=== PATIENT | male | born 1945 | race Caucasian/White ===

== ENCOUNTER 2017-01-19 15:36 | Inpatient (IN) | payer OTHER ==
[~2017-01-19] VITALS: Ht 185.4 cm; Wt 112.7 kg
[2017-01-19 16:06] VITALS: BP 160/65; PULSE 69; TEMP 98.1
[2017-01-19 19:30] VITALS: BP 171/66; PULSE 80; TEMP 97.8
[2017-01-19] MEDS ORDERED: NORVASC 10MG10 MG PO (19:34)
[2017-01-19] MEDS ORDERED: MOBIC 7.5MG7.5 MG PO (19:34)
[2017-01-19] MEDS ORDERED: VITAMIN D 1001000 IU ×2 (19:35→19:37)
[2017-01-19] MEDS ORDERED: ZANTAC 300300 MG PO (19:35)
[2017-01-19] MEDS ORDERED: NEURONTIN400 MG/CAP PO (19:35)
[2017-01-19] MEDS ORDERED: ZESTRIL 20MG TA20 MG PO (19:36)
[2017-01-19] MEDS ORDERED: ZOCOR 20MG20 MG PO (19:36)
[2017-01-19] MEDS ORDERED: ZOLOFT 100MG100 MG PO (19:36)
[2017-01-19] MEDS ORDERED: ASPIRIN 32325 MG/TAB PO (19:37)
[2017-01-19] MEDS ORDERED: K-DUR20 MEQ PO (19:37)
[2017-01-19] MEDS ORDERED: LANTUS100 U/ML SQ ×4 (19:38→19:39)
[2017-01-20 00:19] VITALS: BP 150/89; PULSE 70; TEMP 98.4
[2017-01-20 03:31] VITALS: BP 124/62; PULSE 74; TEMP 98.1
[2017-01-20 07:20] LABS: BASO # 0.1 (0.0-0.2); EOS # 0.2 (0.0-0.7); EOS % 3.3 % (0-4.0); GRAN # 4.3 (1.4-6.5); GRAN % 60.2 % (42.2-75.2); HEMOGLOBIN 15.8 g/dl (13.5-18.0); LYMPH % 27.3 % (20.0-51.0); MEAN CELL VOLUME 90 fl (80.0-100.0); MEAN CORPUSCULAR HEMOGLOBIN 30 pg (27.0-31.0); MEAN CORPUSCULAR HGB CONC 34 g/dl (33.0-37.0); MEAN PLATELET VOLUME 9.6 fl (7.4-10.4); MONO # 0.6 (0.1-0.6); MONO % 7.8 % (1.7-9.3); PLATELET COUNT 311 K/mm3 (130-400); WHITE BLOOD COUNT 7.2 K/mm3 (4.8-10.8)
[2017-01-20 07:30] LABS: MAGNESIUM 1.8 mg/dL (1.6-2.3); PHOSPHOROUS 3.2 mg/dL (2.5-4.5)
[2017-01-20 07:42] LABS: CALCIUM 9.2 mg/dL (8.4-10.2); CHOLESTEROL RISK RATIO 7.8; CREATININE, serum 0.73 mg/dL (0.66-1.25); POTASSIUM 3.8 mmol/L (3.4-5.0)
[2017-01-20 07:46] VITALS: BP 140/73; PULSE 64; TEMP 97.6
[2017-01-20 08:05] LABS: THYROID STIMULATING HORMONE 1.56 uIU/mL (0.465-4.680)
[2017-01-20 11:27] VITALS: BP 117/55; PULSE 69; TEMP 98.2
[2017-01-20 16:07] VITALS: BP 114/49; PULSE 72; TEMP 97.8
[2017-01-20 20:00] VITALS: BP 91/37; PULSE 78; TEMP 98.3
[2017-01-21] VITALS (7 sets, daily range): BP systolic 91–143; BP diastolic 40–60; PULSE 69–81; TEMP 97.6–98.1
[2017-01-21 08:08] LABS: CALCIUM 9.6 mg/dL (8.4-10.2); CREATININE, serum 0.84 mg/dL (0.66-1.25); POTASSIUM 3.9 mmol/L (3.4-5.0)
[2017-01-22 04:39] VITALS: BP 126/44; PULSE 73; TEMP 98.5
[2017-01-22 07:30] LABS: CALCIUM 9.6 mg/dL (8.4-10.2); CREATININE, serum 0.94 mg/dL (0.66-1.25); POTASSIUM 3.7 mmol/L (3.4-5.0)
[2017-01-22 07:50] VITALS: BP 144/86; PULSE 70; TEMP 98.2
[2017-01-22 10:52] VITALS: BP 140/70; PULSE 79; TEMP 98
[2017-01-22 16:29] VITALS: BP 127/64; PULSE 77; TEMP 97.7
[2017-01-22] MEDS ORDERED: LIPITOR 80MG80 MG PO (16:37)
[2017-01-22] MEDS ORDERED: PLAVIX 75MG TAB75 MG PO (16:37)
[2017-01-22] MEDS ORDERED: ASPIRIN 81M81 MG/TA2 PO (16:38)
[2017-01-22] MEDS ORDERED: LEVEMIR100 U/ML SQ (16:48)
[2017-01-22] MEDS ORDERED: NOVLOG SQ (16:48)
[2017-01-22] MEDS ORDERED: B-121000 MCG PO (16:50)
== END 2017-01-22 19:13 | disposition home or self-care (01) | DRG 65 ==
LOC: MEDICAL 15:36
PROVIDERS: Internal Medicine; Physician Assistant
DX: I63.9 Cerebral infarction, unspecified (principal); G81.94 Hemiplegia, unspecified affecting left nondominant side; E11.42 Type 2 diabetes mellitus with diabetic polyneuropathy; E11.65 Type 2 diabetes mellitus with hyperglycemia; I10 Essential (primary) hypertension; E78.5 Hyperlipidemia, unspecified; Z95.5 Presence of coronary angioplasty implant and graft; Z86.73 Personal history of transient ischemic attack (TIA), and cerebral infarction without residual deficits; Z79.4 Long term (current) use of insulin; Z98.1 Arthrodesis status; Z79.82 Long term (current) use of aspirin
CPT/HCPCS: 99232-AI; 99239; A9585; G0378; G8978-GP; G8979-GP; G8987-GO; G8988-GO; G8999-GN; G9158-GN; G9186-GN; J1644; J1815; J3420

== ENCOUNTER 2021-07-27 14:30 | Inpatient (IN) | payer MEDICARE, OTHER ==
[~2021-07-27] VITALS: Ht 185.4 cm; Wt 108.9 kg
[~2021-07-27 14:30] MED LIST: ASPIRIN 32325 MG/TAB PO; ASPIRIN 81M81 MG/TA2 PO; B-121000 MCG PO; K-DUR20 MEQ PO; LANTUS100 U/ML SQ; LEVEMIR100 U/ML SQ; LIPITOR 80MG80 MG PO; MOBIC 7.5MG7.5 MG PO; NEURONTIN400 MG/CAP PO; NITROSTAT0.3 MG SL; NORVASC 10MG10 MG PO; NOVLOG SQ; ONGLYZA5 MG PO; PLAVIX 75MG TAB75 MG PO; VITAMIN D 1001000 IU; ZANTAC 300300 MG PO; ZESTRIL 20MG TA20 MG PO; ZOCOR 20MG20 MG PO; ZOLOFT 100MG100 MG PO
[2021-07-27 16:35] VITALS: BP 115/61; PULSE 66; TEMP 97.9
[2021-07-27] MEDS ORDERED: TRIAMCINOLONE A15 GM TP (16:56)
[2021-07-27] MEDS ORDERED: FLOMAX 0.40.4 MG/CAP PO (16:56)
[2021-07-27] MEDS ORDERED: CRESTOR20 MG PO (16:57)
[2021-07-27] MEDS ORDERED: ZOLOFT 100MG100 MG PO (16:57)
[2021-07-27] MEDS ORDERED: ACTOS 15MG TAB15 MG PO (16:58)
[2021-07-27] MEDS ORDERED: OMNICEF 300MG300 MG PO (16:59)
[2021-07-27] MEDS ORDERED: LASIX 40MG TABL40 MG PO (16:59)
[2021-07-27] MEDS ORDERED: KLOR-CON 1010 MEQ PO (17:00)
[2021-07-27] MEDS ORDERED: TYLENOL 500MG500 MG PO (17:01)
[2021-07-27] MEDS ORDERED: NESINA25 PO (17:02)
[2021-07-27] MEDS ORDERED: NORVASC 10MG10 MG PO (17:03)
[2021-07-27] MEDS ORDERED: ASPIRIN 81M81 MG/TA2 PO (17:04)
[2021-07-27] MEDS ORDERED: JARDIANCE10 PO (17:06)
[2021-07-27] MEDS ORDERED: VITAMIN D31000 I1 PO (17:06)
[2021-07-27] MEDS ORDERED: PLAVIX 75MG TAB75 MG PO (17:06)
[2021-07-27] MEDS ORDERED: LEVEMIR SQ (17:08)
[2021-07-27] MEDS ORDERED: NEURONTIN400 MG/CAP PO (17:09)
[2021-07-27] MEDS ORDERED: IMDUR 30MG30 MG/TAB PO (17:10)
[2021-07-27] MEDS ORDERED: MOBIC15 MG PO (17:10)
[2021-07-27] MEDS ORDERED: LOPRESSOR 550 MG/TAB PO (17:11)
[2021-07-27] MEDS ORDERED: ROBAXIN 50500 MG/TAB PO (17:11)
[2021-07-27] MEDS ORDERED: NITROSTAT0.3 MG SL (17:12)
--- NOTE | 2021-07-27 18:19 | NUR ---
Patient brought to the floor via EMS from [facility]. Patient is A&Ox4, and a SBA. Patient appears to be doing well and is very pleasant. Denies any chest pain at this time. Patient arrived on a heparin gtt. running at 1000 units/hr. Dr. Roldan verbally ordered to discontinue this medication and start the patient on lovenox, 1mg/kg BID.
--- NOTE | 2021-07-27 19:02 | NUR ---
Dr. Roldan notified that med rec was completed. Ordered by telephone to continue all home medications.
[2021-07-27] MEDS ORDERED: K-DUR 10 MEQ T10 MEQ PO (19:15)
[2021-07-27 19:17] LABS: BASO % 0.4 % (0.0-2.0); EOS % 0.3 % (0.0-4.0); GRAN # 6.6 K/mm3 (1.4-6.5); GRAN % 70.1 % (42.2-75.2); HEMATOCRIT 47.3 % (42.0-52.0); HEMOGLOBIN 15.1 g/dl (13.5-18.0); LYMPH # 2.1 K/mm3 (1.2-3.4); LYMPH % 22.5 % (20.0-51.0); MEAN CELL VOLUME 97 fl (80.0-100.0); MEAN CORPUSCULAR HEMOGLOBIN 31 pg (27-31); MEAN CORPUSCULAR HGB CONC 32 g/dl (33.0-37.0); MONO # 0.6 K/mm3 (0.1-0.6); MONO % 6.4 % (1.7-9.3); PLATELET COUNT 487 K/mm3 (130-400); RED BLOOD COUNT 4.88 M/mm3 (4.20-5.60); REDCELL DISTRIBUTION WIDTH-CV 14.4 % (11.5-14.5)
[2021-07-27 19:27] LABS: CREATININE, serum 0.97 mg/dL (0.72-1.25); POTASSIUM 4.6 mmol/L (3.5-4.5)
[2021-07-27 19:53] VITALS: BP 119/86; PULSE 73; TEMP 98.1
[2021-07-27 21:31] VITALS: BP 149/65; PULSE 80
--- NOTE | 2021-07-27 22:33 | NUR ---
Patient assessed around 2044. Alert and oriented, and able to make needs known. Denied pain ad discomfort at that time. Aound 2139, patient complained of chest pain. Obtained VS and EKG. Paged Dr. He at 2145. Dr. He called back at 2152. Updated on chest pain. New orders recieved for Nitro and Morphine PRN. Given PRN Morphine for chest pain, as that is what medication helped him earlier today with the pain. Patient has peripheral INT to left and right forearm. Denies SOB and dyspnea. LS CTA in upper lobes, diminished in lower. HRR. Telemetry in place. Capillary refill less than 3 seconds. Non-tenting skin turgor. BSAx4. Abdomen soft and non-tender. 1+ edema BLE. Patient denies pain and discomfort at this time, reported that Morphine was effective. Patient voices no questions, needs, or concerns at this time. In bed with call light within reach.
[2021-07-28 00:22] VITALS: BP 109/64; PULSE 70; TEMP 98.2
[2021-07-28 04:37] VITALS: BP 132/60; PULSE 80; TEMP 98.2
--- NOTE | 2021-07-28 06:00 | NUR ---
Patient recieved PRN Morphine once this shift for chest pain, which was effective. Has voiced no further complaints of pain or discomfort this shift. Voices no questions, needs, or concerns at this time. In bed with call light within reach.
--- NOTE | 2021-07-28 06:50 | NUR ---
received critical Troponin during report. Mayela NAVARRO called Dr. He, received orders for pt to be NPO.
--- NOTE | 2021-07-28 07:03 | NUR ---
INTRODUCED SELF TO PT, PT DENIES PAIN AT THIS TIME. UPDATED NOW CURRENTLY NPO UNTIL ABLE TO BE ASSESSED BY CARDIOLOGY. PT V/U.
[2021-07-28 07:31] VITALS: BP 126/79; PULSE 83; TEMP 98.3
--- NOTE | 2021-07-28 07:58 | NUR ---
Dr. Roldan called, discussed medications and EKG. Discussed pt asymptomatic at this time, will give other medications with sips of water.
--- NOTE | 2021-07-28 10:05 | NUR ---
DR. DURANT NOTIFIED OF PT UPDATE. NPO STATUS, EKG RESULTED AND IN CHART. PT RATING PAIN 3/10, NO MORHINE GIVEN AT THIS TIME. NO FURTHER INSTRUCTION RECEIVED.
--- NOTE | 2021-07-28 10:26 | NUR ---
PT ASSESSMENT COMPLETED TO BEST OF ABILITY, PHYSICIAN COMMUNICATION PER PREVIOUS NOTED. PT ABLE TO EXPRESS NEEDS, MEDICATIONS GIVEN PER DISCUSSION WITH DR. LEWIS.
[2021-07-28 11:25] VITALS: BP 135/67; PULSE 78; TEMP 98.1
--- NOTE | 2021-07-28 12:40 | NUR ---
stopped by but nothing needed at this time.
--- NOTE | 2021-07-28 14:14 | NUR ---
CALLED DR. LEWIS STATING NO INSULIN DURING DAY AND BLOOD GLUCOSE TRENDING UPWARD. RECEIVED ORDER FOR SLIDING SCALE-MID INSULIN ACHS.
--- NOTE | 2021-07-28 15:24 | NUR ---
hospital tray service worker met with patient to discuss discharge plan. Patient currently lives in [place] with his Kim ([phone]). Patient is independent with his ADL's. He utilizes a rollator walker to assist with mobility. PCP is Dr. Nguyen and he utilizes [facility] pharmacy in [place] for short term medications and the [place] for tank terminal gauger medications. Patient states that he does have a DPOA-HC established listing his as his agent. Patient is planning on returning home with no concerns. Discharge plan: Home
[2021-07-28 16:21] VITALS: BP 122/73; PULSE 72; TEMP 97.4
--- NOTE | 2021-07-28 17:41 | NUR ---
PT CONTINUING ON PLAN OF CARE. SLIDING SCALE IMPLEMENTED THIS SHIFT, RESUMED DIET THIS SHIFT. PT ABLE TO EXPRESS NEEDS.
--- NOTE | 2021-07-28 20:56 | NUR ---
Pt's FSBS was 165. Pt reported that the 165 blood sugar was "too low" and that when he was given Levemir insulin at [place] with a blood sugar around that level he dropped into the "40's". Notified Dr. Austin. Discussed the situation and notified the provider that the pt would also be recieving 2 units of sliding scale insulin. The provider stated to hold the 80 units tonight and continue to monitor the blood sugar levels. No other changes at this time, will continue to monitor.
[2021-07-28 21:00] VITALS: BP 116/50; PULSE 74; TEMP 98.8
[2021-07-29] VITALS (8 sets, daily range): BP systolic 82–119; BP diastolic 33–62; PULSE 74–82; TEMP 98.1–98.9
--- NOTE | 2021-07-29 | NUR ---
Pt alert and oriented this evening, resting currently. Continues to deny chest pain/SOB/diaphoresis. Educated pt to notify staff of new onset chest pain or related s/s. Shift assessment performed. Medications administered per orders and education provided. VS stable. HR currently NSR and in 80's. Blood sugar was 165 this evening. 80 units of levemir insulin held per providers orders (see previous note). Will continue to monitor VS and blood sugars. Pt independent. Tolerated pills PO. Lung sounds clear/diminished. Remains on room air. No edema noted. Pt reports no questions at this time, will continue to monitor.
--- NOTE | 2021-07-29 00:53 | NUR ---
Was reported that pt's BP was 82/33. Did a manual retake and got 118/62. Pt denies dizziness/SOB/chest pain. No diaphoresis. Will continue to monitor.
--- NOTE | 2021-07-29 05:02 | NUR ---
Was reported that pt's BP was 92/42. Reassessed BP manually and got 114/56. Will continue to monitor.
--- NOTE | 2021-07-29 05:23 | NUR ---
No adverse events overnight. Pt remains alert and oriented when awake, resting currently. VS stable. BP ran softer overnight, but pt denies dizziness/lightheadedness. Pt denies chest pain. HR running in 70's-80's, NSR. Remains on room air, satting WNL. Tolerated PO medications. Pt reports no questions, will continue to monitor.
[2021-07-29 08:18] LABS: BASO # 0.1 K/mm3 (0.0-0.2); BASO % 0.5 % (0.0-2.0); EOS % 0.3 % (0.0-4.0); GRAN # 7.3 K/mm3 (1.4-6.5); GRAN % 72.4 % (42.2-75.2); HEMATOCRIT 43.4 % (42.0-52.0); HEMOGLOBIN 14.2 g/dl (13.5-18.0); LYMPH # 1.9 K/mm3 (1.2-3.4); LYMPH % 19.2 % (20.0-51.0); MEAN CELL VOLUME 94 fl (80.0-100.0); MEAN CORPUSCULAR HEMOGLOBIN 31 pg (27-31); MEAN CORPUSCULAR HGB CONC 33 g/dl (33.0-37.0); MEAN PLATELET VOLUME 8.5 fl (7.4-10.4); MONO # 0.7 K/mm3 (0.1-0.6); MONO % 7.1 % (1.7-9.3); RED BLOOD COUNT 4.63 M/mm3 (4.20-5.60); REDCELL DISTRIBUTION WIDTH-CV 14.5 % (11.5-14.5)
[2021-07-29 08:20] LABS: PLATELET COUNT 379 K/mm3 (130-400)
--- NOTE | 2021-07-29 08:25 | NUR ---
Patient laying in bed upon entering the room. Patient denies any concerns this morning and appears to be doing well. Patient has call light w/in reach and has been encouraged to call if any needs arise.
[2021-07-29 08:30] LABS: CREATININE, serum 1.04 mg/dL (0.72-1.25); POTASSIUM 4.3 mmol/L (3.5-4.5)
[2021-07-29 08:51] LABS: TROPONIN-I 11.472 ng/mL (0.00-0.033)
--- NOTE | 2021-07-29 18:30 | NUR ---
Patient has done well today and continues to deny and chest pain, SOB, or dizziness.
--- NOTE | 2021-07-29 19:48 | NUR ---
Notified provider in regards to the pt's 80 units of levemir insulin. Pt's FSBS was 195 this evening, but the pt reports when he recieved that much insulin with a blood sugar around that level last time he dropped into the 40's. The Pt will also be NPO 0000 tonight for a procedure tomorrow. The provider stated to hold the 80 units of levemir tonight and to just administer the sliding scale insulin per orders. Will follow orders per changes and will continue to monitor the pt.
[2021-07-29 21:51] LABS: HEMATOCRIT 41.2 % (42.0-52.0); HEMOGLOBIN 14.2 g/dl (13.5-18.0); MEAN CELL VOLUME 90 fl (80.0-100.0); MEAN CORPUSCULAR HEMOGLOBIN 31 pg (27-31); MEAN CORPUSCULAR HGB CONC 35 g/dl (33.0-37.0); MEAN PLATELET VOLUME 8.7 fl (7.4-10.4); PLATELET COUNT 361 K/mm3 (130-400); RED BLOOD COUNT 4.57 M/mm3 (4.20-5.60); REDCELL DISTRIBUTION WIDTH-CV 14.4 % (11.5-14.5)
[2021-07-29 21:59] LABS: INR 1.3 (0.8-3.0); PROTHROMBIN TIME 14.5 SECONDS (9.7-12.8)
[2021-07-29 22:02] LABS: PARTIAL THROMBOPLASTIN TIME 32.5 SECONDS (26.0-37.0)
[2021-07-29 22:13] LABS: CALCIUM 9.1 mg/dL (8.4-10.2); CREATININE, serum 1.36 mg/dL (0.72-1.25); POTASSIUM 4.3 mmol/L (3.5-4.5)
--- NOTE | 2021-07-29 23:59 | NUR ---
Pt alert and oriented this evenin, resting currently. Denies chest pain/SOB/diaphoresis. Independent in room. Shift assessment performed. Medications administered per orders and education provided. VS stable. HR is in 70's and NSR. BP runs lower, but pt denies dizziness/lightheadedness. Pt will be NPO OOOO. FSBS 195 this evening. Continuing to monitor HR and rythym. Pt reports no concerns at this time, will continue to monitor.
[2021-07-30] VITALS (15 sets, daily range): BP systolic 101–164; BP diastolic 41–79; PULSE 75–92; TEMP 97.8–98.6
--- NOTE | 2021-07-30 04:57 | NUR ---
No adverse events overnight. Pt NPO since 0000. Continued to deny chest pain overnight. VS stable, BP still running softer, but Pt denies dizziness/lightheadedness. HR ran in 70's-80's overnight, NSR. Pt reports no questions this morning, will continue to monitor.
--- NOTE | 2021-07-30 10:56 | NUR ---
PATIENT IN BED SLEEPING. NPO FOR CARDIAC CATH TODAY. NO COMPLAINTS OF PAIN. NO DIFFICULTY BREATHING OR SHORTNESS OF BREATH. PATIENT ON BEDREST WITH LIMITED ACTIVITY TO BATHROOM. INDEPENDENT IN ROOM. IN GOOD SPIRITS. ALL MEDS EXCEPT FOR ASPRIN AND PLAVIX HELD PER STAVE BLOCK ROLLER RN FOR PROCEDURE.
[2021-07-30 11:22] LABS: CHOLESTEROL RISK RATIO 5.1
--- NOTE | 2021-07-30 17:19 | NUR ---
ARRIVED AT 1715, NO COMPLAINTS OF PAIN. REVIEWED SITE WITH ELECTROMECHANISMS DESIGN DRAFTER RN. EDUCATON PROVIDED, VITALS STARTED. MEAL ORDERED. WILL CONTINUE TO MONIOR
--- NOTE | 2021-07-30 18:47 | NUR ---
PATIENT RESTED IN BED COMFORTABLY FOR MOST OF DAY. HEART CATH PERFORMED THIS AFTERNOON. RCA BALLONED. THROMBECTOMY PERFORMED. PATIENT HAS NO COMPLAINTS OF PAIN, NO SWELLING, NO REDNESS, BLEEDING OR HEMATOMA AT SITE. FLAT TIME PER ORDER ENDS AT 1850. PATIENT ORDERED DINNER. INSULIN NOT REQUIRED, DUE TO NPO THROUGH OUT DAY. POST PRECEDURE VITALS INITIATED.
--- NOTE | 2021-07-30 20:00 | NUR ---
Initial shift assessment done- very pleasant, alert/oriented, right groin site, soft, no drainage on dressing, small bruise next to site, denies pain, HOB up at this time- pt eating a few bites of supper. Tele on, NSR, VSS, Did assist patient with urinal- voiding good amounts urine.
[2021-07-31 00:02] VITALS: BP 150/70; PULSE 88
[2021-07-31 02:33] VITALS: BP 138/49; PULSE 93; TEMP 98.6
--- NOTE | 2021-07-31 05:38 | NUR ---
Quiet night-- Right groin site dry and intact- area soft,, VSS, denies any pain. Voiding per urinal with assistance.
[2021-07-31 07:41] VITALS: BP 138/61; PULSE 83; TEMP 97.6
[2021-07-31 09:08] LABS: CALCIUM 8.8 mg/dL (8.4-10.2); CREATININE, serum 1.04 mg/dL (0.72-1.25)
[2021-07-31] MEDS ORDERED: CRESTOR20 MG PO (09:47)
[2021-07-31] MEDS ORDERED: ELIQUIS 5MG PO (09:49)
--- NOTE | 2021-07-31 10:13 | NUR ---
Initial visit; Patient thanked Fats And Oils Loader for looking in on him and offering God's blessings and keeping him in her prayers.
--- NOTE | 2021-07-31 11:57 | NUR ---
PATIENT RESTING COMFORTABLY IN BED. NO COMPLAINTS OF PAIN. TOOK MEDS WHOLE WITH WATER. READY TO DISCHARGE HOME WITH HOME HEALTH TODAY. GROIN CATH SITE, SMALL BRUISE, PRESENT ON RETURN FROM PRINT BUYER, NO HEMATOMA NO FIRMNESS NO PAIN NO BLEEDING. PATIENT TOLERATING ORAL INTAKE, AND MOVEMENT. WILL PREPARE DISCHARGE EDUCATION AND PAPERWORK.
--- NOTE | 2021-07-31 12:56 | NUR ---
PATIENT EDUCATION AND DISCHARGE INSTRUCTIONS GIVEN. IV'S REMOVED AND TELE DISCHARGED. PATIENT'S AIDED IN DRESSING AND GIVEN RIDE HOME.
== END 2021-07-31 12:59 | disposition home health service (06) | DRG 282 ==
LOC: SURG 14:30 → MEDICAL 16:24
PROVIDERS: Nurse Practitioner; ADMIT Internal Medicine Interventional Cardiology
PROC: 4A023N7 Measurement of Cardiac Sampling and Pressure, Left Heart, Percutaneous Approach (ICD-10-PCS; principal; 2021-07-30)
PROC: B2111ZZ Fluoroscopy of Multiple Coronary Arteries using Low Osmolar Contrast (ICD-10-PCS; 2021-07-30)
DX: I21.4 Non-ST elevation (NSTEMI) myocardial infarction (principal); I25.10 Atherosclerotic heart disease of native coronary artery without angina pectoris; I10 Essential (primary) hypertension; E78.5 Hyperlipidemia, unspecified; E11.51 Type 2 diabetes mellitus with diabetic peripheral angiopathy without gangrene; I48.91 Unspecified atrial fibrillation; Z95.5 Presence of coronary angioplasty implant and graft; Z79.02 Long term (current) use of antithrombotics/antiplatelets; Z86.73 Personal history of transient ischemic attack (TIA), and cerebral infarction without residual deficits
CPT/HCPCS: A9270; C1725; C1757; C1760; C1769; C1887; C1894; G0378; J0583; J1644; J1650; J1815; J2250; J2270; J3010

== ENCOUNTER 2021-08-21 22:30 | Observation (INO) | payer MEDICARE, OTHER ==
[~2021-08-21] VITALS: Ht 185.4 cm; Wt 109.6 kg
[~2021-08-21 22:30] MED LIST changes: +ACTOS 15MG TAB15 MG PO; +CRESTOR20 MG PO; +ELIQUIS 5MG PO; +FLOMAX 0.40.4 MG/CAP PO; +IMDUR 30MG30 MG/TAB PO; +JARDIANCE10 PO; +K-DUR 10 MEQ T10 MEQ PO; +KLOR-CON 1010 MEQ PO; +LASIX 40MG TABL40 MG PO; +LEVEMIR SQ; +LOPRESSOR 550 MG/TAB PO; +MOBIC15 MG PO; +NESINA25 PO; +OMNICEF 300MG300 MG PO; +ROBAXIN 50500 MG/TAB PO; +TRIAMCINOLONE A15 GM TP; +TYLENOL 500MG500 MG PO; +VITAMIN D31000 I1 PO
[2021-08-22] MEDS ORDERED: FLOMAX 0.40.4 MG/CAP PO (00:13)
[2021-08-22] MEDS ORDERED: IMDUR 30MG30 MG/TAB PO (00:14)
[2021-08-22 00:24] VITALS: BP 121/53; PULSE 76; TEMP 98.6
[2021-08-22 00:51] LABS: BASO # 0.1 K/mm3 (0.0-0.2); BASO % 0.7 % (0.0-2.0); EOS # 0.1 K/mm3 (0.0-0.7); EOS % 1.5 % (0.0-4.0); GRAN # 5.1 K/mm3 (1.4-6.5); HEMOGLOBIN 13.9 g/dl (13.5-18.0); LYMPH # 1.5 K/mm3 (1.2-3.4); LYMPH % 20.8 % (20.0-51.0); MEAN CELL VOLUME 93 fl (80.0-100.0); MEAN CORPUSCULAR HEMOGLOBIN 31 pg (27-31); MEAN CORPUSCULAR HGB CONC 33 g/dl (33.0-37.0); MEAN PLATELET VOLUME 8.6 fl (7.4-10.4); MONO # 0.5 K/mm3 (0.1-0.6); MONO % 6.7 % (1.7-9.3); PLATELET COUNT 261 K/mm3 (130-400); RED BLOOD COUNT 4.53 M/mm3 (4.20-5.60); REDCELL DISTRIBUTION WIDTH-CV 14.1 % (11.5-14.5)
[2021-08-22 01:12] LABS: CALCIUM 8.4 mg/dL (8.4-10.2); CREATININE, serum 0.79 mg/dL (0.72-1.25); POTASSIUM 4.1 mmol/L (3.5-4.5)
[2021-08-22 01:29] LABS: TROPONIN-I 5.133 ng/mL (0.00-0.033)
--- NOTE | 2021-08-22 02:59 | NUR ---
PATIENT TO ROOM 309. ALERT AND ORIENTED. DENYING CHEST PAIN. MED RX COMPLETED. ADMISSION ASSESSMENTS COMPLETED. NOTIFIED PRESTON KUMAR OF PATIENTS ARRIVAL. PRESTON IN TO SEE PATIENT. MEDS GIVEN PER EMAR. PATIENT TO BE NPO. CRITICAL TROPONIN [phone] CALLED TO PRESTON KUMAR, NO CHANGES AT THIS TIME. WILL REPEAT TROP IN 3HRS.
[2021-08-22 04:04] VITALS: BP 106/51; PULSE 86; TEMP 98.1
--- NOTE | 2021-08-22 05:06 | NUR ---
CRITICAL TROPONIN [phone] CALLED TO PRESTON KUMAR. ORDER TO UPDATE CARDIOLOGY IN AM.
[2021-08-22 07:29] VITALS: BP 86/47; PULSE 74; TEMP 98.8
--- NOTE | 2021-08-22 09:55 | NUR ---
HELD BP MEDS THIS AM PER DR MADSEN. PT HYPOTENSIVE.
--- NOTE | 2021-08-22 10:08 | NUR ---
day care worker met with patient to discuss discharge plan. Patient lives at home with his Kim ([phone]) in [place]. Patient reports that he is fully independent with his ADL's execpt for " my socks. Kim helps with those". Patient utilizes a walker to assist with mobility. PCP is Dr. Paras Nguyen and he utilizes [facility] in [place] for medications with no cost difficulty. Patient has no home oxygen needs. He states he utilized a CPAP at one time but would "reina up more tired". Patient reports that he does have a general DPOA-HC estbalished and his agent is listed at [employer]. This SW and [facility] Marian Rodriguez met with patient to present him with a [employer]URMAN form. Education provided to the patient and he verbalized his understanding. Signed original placed in the patients chart and copy provided back to the patient. Discharge plan: Home
--- NOTE | 2021-08-22 10:39 | NUR ---
Nadine: Taoism Situation: Cable Tv Installer stopped by on rounds Background: PT with family member Assessment: Family is helping answer questions and navigate the discussion. Recommendation: Cable Tv Installer will follow up as needed
[2021-08-22 11:26] VITALS: BP 115/51; PULSE 86; TEMP 98
[2021-08-22 15:35] VITALS: BP 137/56; PULSE 62; PULSE 86; TEMP 98.1
[2021-08-22 20:57] VITALS: BP 130/56; PULSE 73; TEMP 98
--- NOTE | 2021-08-22 22:20 | NUR ---
Patient assessed around 2054. Denied pain and discomfort at that time. Patient given medications per order, went over all new medications with patient. Telemetry in place. Voiced no questions, needs, or concerns at time of assessment. In bed with call light within reach.
[2021-08-23] VITALS: BP 109/61; PULSE 76; TEMP 98.5
[2021-08-23 03:05] VITALS: BP 109/61; PULSE 76; TEMP 98.5
[2021-08-23 04:56] VITALS: BP 115/60; PULSE 71; TEMP 98.2
--- NOTE | 2021-08-23 06:00 | NUR ---
Denies pain and discomfort this morning. Voices no questions, needs, or concerns at this time. In bed with call light within reach.
[2021-08-23 07:18] VITALS: BP 110/58; PULSE 80; TEMP 98.4
[2021-08-23] MEDS ORDERED: ELIQUIS 5MG PO ×2 (09:26)
[2021-08-23] MEDS ORDERED: BRILINTA90 MG PO ×2 (09:27)
[2021-08-23] MEDS ORDERED: RANEXA 500MG T500 MG PO ×2 (09:28)
[2021-08-23] MEDS ORDERED: IMDUR 60MG60 MG/TAB PO ×2 (09:30)
[2021-08-23] MEDS ORDERED: NITROSTAT0.4 MG/TAB SL ×2 (09:31)
[2021-08-23] MEDS ORDERED: NORVASC 5MG5 MG/TAB PO ×2 (09:32)
[2021-08-23 11:32] VITALS: BP 99/46; PULSE 76; TEMP 98.1
--- NOTE | 2021-08-23 11:47 | NUR ---
PATIENT A&O, NO COMPLAINTS OF PAIN. TROPONINS TRENDING DOWN. PATIENT IN GOOD SPIRITS. PLANS FOR DISCHARGE TODAY. NSR ON TELE. NO CONCERNS AT THIS TIME.
--- NOTE | 2021-08-23 14:51 | NUR ---
PATIENT DISCHARGE INSTRUCTION REVIEWED WITH FAMILY AND PATIENT. TELE REMOVED AND IV REMOVED. PATIENT DRESSED AND WHEELED DOWN FOR DISCHARGE.
== END 2021-08-23 14:45 | disposition home health service (06) ==
LOC: MEDICAL 22:30
PROVIDERS: Student in an Organized Health Care Education/Training Program; ADMIT Internal Medicine
DX: R77.8 Other specified abnormalities of plasma proteins (principal); R07.9 Chest pain, unspecified; I25.10 Atherosclerotic heart disease of native coronary artery without angina pectoris; I50.30 Unspecified diastolic (congestive) heart failure; I11.0 Hypertensive heart disease with heart failure; E11.9 Type 2 diabetes mellitus without complications; E78.5 Hyperlipidemia, unspecified; G40.909 Epilepsy, unspecified, not intractable, without status epilepticus; G89.29 Other chronic pain; M54.9 Dorsalgia, unspecified; F32.A Depression, unspecified; Z79.82 Long term (current) use of aspirin; Z79.84 Long term (current) use of oral hypoglycemic drugs; Z95.5 Presence of coronary angioplasty implant and graft; Z79.4 Long term (current) use of insulin; Z86.73 Personal history of transient ischemic attack (TIA), and cerebral infarction without residual deficits; Z79.899 Other long term (current) drug therapy; Z79.01 Long term (current) use of anticoagulants
CPT/HCPCS: G0378; J1815